=== PATIENT | female | born 1960 | race Two or more races ===

== ENCOUNTER 2024-07-06 09:54 | Outpatient (AMB) | payer OTHER, SELFPAY ==
--- NOTE | 2024-07-06 10:34 | MHC.OFFVIS ---
Vital Signs 07/06/24 10:37 Height 5 ft 0.79 in Weight 213 lb 13.574 oz BMI 40.7 BP 142/86 H Blood Pressure Location Rt brachial Position Sitting Pulse 79 Pulse Source Pulse Oximeter Pulse Oximetry (%) 98 Oxygen Delivery Method Room Air Intake Visit Reasons: sleep apnea Allergies hydromorphone [From Dilaudid] Allergy (Intermediate, Verified 07/06/24 10:43) Swelling Sulfa (Sulfonamide Antibiotics) Allergy (Verified 07/06/24 10:43) Swelling HPI Comments Details: The patient is here for pulmonary evaluation. The patient is a 63 year woman with known history of sleep apnea. Apparently she was diagnosed back in 2012 with sleep study demonstrating moderate sleep apnea. Ever since the patient has been on CPAP therapy. The therapy has been very affecting beneficial for her. She does use a nasal mask, N20 large. Initially she did get supplies through [facility] [employer] and then switched over to [employer] once it was brought out. Subsequently after that switched over to [employer]. [facility] have been providing her with a new APAP AirSense 11 in a mask N20 large getting it readily and the patient again used it every night for more than 4 hours a night. Again, very happy with her CPAP therapy. Unfortunately she stopped getting supplies about a year ago. She was not clear why. She will call the sleep Center in also called the [employer] company but she could not get a clear answer. Most likely was a language barrier which she did not understand that [facility] with no longer providing business with [employer]. Therefore she continue to use his supplies as she continued to clean them thoroughly to make sure that she was disinfecting them. Otherwise the patient is doing well. She does complains of dyspepsia at times. She did have imaging study at [facility] a CT scan of the abdomen that I just looked at the lung cuts without any evidence of any underlying lung disease although she does have a small hiatal hernia. We did talk about the importance of reflux diet and sleeping elevated. The patient still has [employer] for insurance will go ahead and send a script for her supplies to be delivered through [employer]. [facility] Medical History (Updated 07/06/24 @ 19:59 by Flip Sol MD) Hiatal hernia ARMANDO on CPAP Social History (Updated 07/06/24 @ 10:42 by Stacey Light CMA) Alcohol intake: never Patient Tobacco Use Status: Never used Tobacco Review of Systems Const Denies daytime sleepiness Eyes Reports no additional complaints ENT Reports no additional complaints Card Denies chest pain Resp Reports cough and Denies wheezing GI Reports dyspepsia Musc Reports no additional complaints Skin/Breast Denies rash Neuro Reports no additional complaints Jimmie/Lymph Reports no additional complaints Aller/Immun Denies wheezing Physical Exam Vital Signs: Last Vital Signs Pulse 79 07/06/24 10:37 BP 142/86 H 07/06/24 10:37 Pulse Ox 98 07/06/24 10:37 Oxygen Delivery Method Room Air 07/06/24 10:37 BMI result Body Mass Index 40.7 Const General: comfortable Orientation/consciousness: patient oriented x3 HEENT Head: Yes normocephalic Neck Neck: Yes supple Chest Chest palpation & inspection: normal inspection of the chest Resp Effort & Inspection: normal respiratory effort Auscultation: clear to auscultation bilaterally Cardio Heart sounds: S1 normal heart sound present and S2 normal heart sound present GI Palpation (GI): Soft to palpation Skin General skin exam: no rashes or lesions noted Neuro General: patient oriented x3 Extrem General: Yes no clubbing, cyanosis or edema Assessment & Plan Assessment & Plan (1) ARMANDO on CPAP: Code(s): G47.33 - Obstructive sleep apnea (adult) (pediatric) Category: Medical (2) Hiatal hernia: Code(s): K44.9 - Diaphragmatic hernia without obstruction or gangrene Category: Medical Plan Continue APAP, will request access to adjust via [employer] Needs supplies, N20 Large sent script to [employer] should sleep with HOB elebated reflux diet F/U 6 months Coding Level of Care Code New Pt Level 4 (42618) Diagnoses ARMANDO on CPAP G47.33 Hiatal hernia K44.9 Time Spent (min) 35
[2024-07-06 10:37] VITALS: BP 142/86; PULSE 79; O2SAT 98; BMI 40.7
--- OUTSIDE RECORDS SUMMARY | 2024-07-06 11:24 | XMS_ITS | Clinical Summary ---
Author Organization [facility] ity Address [id number] [place] [id number] Care Team Providers Care Specialty Department Supervisor Name Role Phone Unavailable Primary Care Provider Unavailabl e Social History Tobacco Use Types Packs/Day Years Used Date Smoking Tobacco: Never Assessed Comments Unknown Sex and Gender Information Value Date Recorded Sex Assigned at Not on file Legal Sex Female 12:52 AM EST Gender Identity Not on file Sexual Orientation Not on file Plan of Treatment Health Maintenance Due Date Last Done Comments Breast Cancer Screening 1960 DTaP,Tdap,and Td Vaccines (1 - Tdap) 07/21/1978 Cervical Cancer Screening: P ap Smear 07/21/1980 Pneumococcal Vaccine: 50+ Ye ars (1 of 1 - PCV) 07/21/2009 Zoster Vaccines (1 of 2) 07/21/2009 COVID-19 Vaccine ( - 2023-2 5 season) 2023 Influenza Vaccine (#1) 2023 RSV Immunization Adult Patie nts (1 - 1-dose 75+ series) 07/21/2034 HIB Vaccines Aged Out No longer eligi ble based on patient's age to complete this topic HPV Vaccines Aged Out No longer eligi ble based on patient's age to complete this topic Hepatitis A Vaccines Aged Out No long er eligible based on patient's age to complete this topic Hepatitis B Vaccines Aged Out No long er eligible based on patient's age to complete this topic IPV Vaccines Aged Out No longer eligi ble based on patient's age to complete this topic MMR Vaccines Aged Out No longer eligi ble based on patient's age to complete this topic Meningococcal ACWY Vaccine Aged Out N o longer eligible based on patient's age to complete this topic Meningococcal B Vaccine Aged Out No l onger eligible based on patient's age to complete this topic Pneumococcal Vaccine: Pediat rics (0 to 5 Years) and At-Risk Patients (6 to 64 Years) Aged Out No longer eligible b ased on patient's age to complete this topic RSV Immunization Patients Un jens 20 months Aged Out No longer eligible b ased on patient's age to complete this topic Varicella Vaccines Aged Out No longer eligible based on patient's age to complete this topic
== END 2024-07-06 11:05 | disposition home or self-care (01) ==
LOC: HO.HPS 09:54
PROVIDERS: PCP Physician Assistant Medical; Visit Provider Hospitalist
DX: G47.33 Obstructive sleep apnea (adult) (pediatric) (principal); K44.9 Diaphragmatic hernia without obstruction or gangrene
CPT/HCPCS: 99204

== ENCOUNTER → 2024-07-06 09:54 | Outpatient (BNVA) | payer OTHER, SELFPAY | PROVIDERS: PCP Physician Assistant Medical; Visit Provider Hospitalist | DX: G47.33 Obstructive sleep apnea (adult) (pediatric) (principal); K44.9 Diaphragmatic hernia without obstruction or gangrene | CPT/HCPCS: 99202 ==

== ENCOUNTER 2024-12-31 10:17 | Outpatient (AMB) | payer MEDICARE, MEDICAID, SELFPAY ==
[2024-12-31 10:19] VITALS: BP 150/82; PULSE 76; O2SAT 96; BMI 40.0
--- NOTE | 2024-12-31 10:19 | MHC.OFFVIS ---
Vital Signs 12/31/24 10:19 Height 5 ft Weight 205 lb 0.478 oz BMI 40.0 BP 150/82 H Blood Pressure Location Rt brachial Position Sitting Pulse 76 Pulse Source Pulse Oximeter Pulse Oximetry (%) 96 Oxygen Delivery Method Room Air Intake Visit Reasons: sleep apnea Allergies hydromorphone (From Dilaudid) Allergy (Intermediate, Verified 12/31/24 10:21) Swelling Sulfa (Sulfonamide Antibiotics) Allergy (Verified 12/31/24 10:21) Swelling HPI Comments Details: The patient is a 64 year woman with known history of sleep apnea. Apparently she was diagnosed back in 2012 with sleep study demonstrating moderate sleep apnea. Ever since the patient has been on CPAP therapy. The therapy has been very affecting beneficial for her. She does use a nasal mask, N20 large. Initially she did get supplies through [facility] [employer] and then switched over to [employer] once it was brought out. Subsequently after that switched over to [employer]. [facility] have been providing her with a new APAP AirSense 11 in a mask N20 large getting it readily and the patient again used it every night for more than 4 hours a night. Again, very happy with her CPAP therapy. Unfortunately she stopped getting supplies about a year ago. She was not clear why. She will call the sleep Center in also called the [employer] company but she could not get a clear answer. Most likely was a language barrier which she did not understand that [facility] with no longer providing business with [employer]. Therefore she continue to use his supplies as she continued to clean them thoroughly to make sure that she was disinfecting them. Otherwise the patient is doing well. She does complains of dyspepsia at times. She did have imaging study at [facility] a CT scan of the abdomen that I just looked at the lung cuts without any evidence of any underlying lung disease although she does have a small hiatal hernia. We did talk about the importance of reflux diet and sleeping elevated. The patient still has [employer] for insurance will go ahead and send a script for her supplies to be delivered through [employer]. 12/31/2024 the patient is here for pulmonary follow-up visit. The patient overall is doing well. She continues uses CPAP every night. CPAP therapy has been affecting beneficial. She does use it for more than 4 hours a night. Sometimes she feels like she is not getting enough pressure from the machine. She is not sure if the machine needs to be changed. She is using a nasal mask. Seems to be working well along with a chinstrap. Will go ahead and request a download from the machine at this time from her [employer] company. Once we have access we can do that online. In the meantime she is not getting her supplies readily. We did send a script over in the beginning of the month will send another 1 now. To make sure that she gets her supplies readily available specially since she is so adherent to the therapy. She continues to have some reflux disease. Mild in severity. She does have a positional bed that helps with the symptoms. She has a small hiatal hernia noted on imaging studies. She is on have to take any medications for it. The patient will return in 6 months and she will bring her CPAP with her so we can assess the machine and adjusted accordingly. If she has any issues prior to this she can always call for further recommendations. [facility] Medical History (Updated 07/06/24 @ 19:59 by Flip Sol MD) Hiatal hernia ARMANDO on CPAP Social History Alcohol intake: never Patient Tobacco Use Status: Never used Tobacco Review of Systems Const Denies daytime sleepiness Eyes Reports no additional complaints ENT Reports no additional complaints Card Denies chest pain Resp Reports cough and Denies wheezing GI Reports dyspepsia Musc Reports no additional complaints Skin/Breast Denies rash Neuro Reports no additional complaints Jimmie/Lymph Reports no additional complaints Aller/Immun Denies wheezing Physical Exam Vital Signs: Last Vital Signs Pulse 76 12/31/24 10:19 BP 150/82 H 12/31/24 10:19 Pulse Ox 96 12/31/24 10:19 Oxygen Delivery Method Room Air 12/31/24 10:19 BMI result Body Mass Index 40.0 Const General: comfortable Orientation/consciousness: patient oriented x3 HEENT Head: Yes normocephalic Neck Neck: Yes supple Chest Chest palpation & inspection: normal inspection of the chest Resp Effort & Inspection: normal respiratory effort Auscultation: clear to auscultation bilaterally Cardio Heart sounds: S1 normal heart sound present and S2 normal heart sound present GI Palpation (GI): Soft to palpation Skin General skin exam: no rashes or lesions noted Neuro General: patient oriented x3 Extrem General: Yes no clubbing, cyanosis or edema Assessment & Plan Assessment & Plan (1) ARMANDO on CPAP: Code(s): G47.33 - Obstructive sleep apnea (adult) (pediatric) Category: Medical (2) Hiatal hernia: Code(s): K44.9 - Diaphragmatic hernia without obstruction or gangrene Category: Medical Plan Continue APAP, will request access to adjust via [employer] Needs supplies, N20 Large sent script should sleep with HOB elebated reflux diet F/U 6 months Coding Level of Care Code Est Pt Level 4 (76195) Complex EM visit Add On G2211 Diagnoses ARMANDO on CPAP G47.33 Hiatal hernia K44.9 Time Spent (min) 16
--- OUTSIDE RECORDS SUMMARY | 2024-12-31 11:08 | XMS_ITS | Clinical Summary ---
Author Organization [facility] ity Address [id number] [place] [id number] Care Team Providers Care Athletic Coordinator Name Role Phone Unavailable Primary Care Provider [...] 07/21/2009 Zoster Vaccines (1 of 2) 07/21/2009 Depression Screening 03/31/2024 COVID-19 Vaccine (1 - 2023-2 5 season) 2024 Influenza Vaccine (#1) 2024 RSV Immunization Adult Patie nts (1 - [...]
== END 2024-12-31 10:50 | disposition home or self-care (01) ==
PROVIDERS: PCP Physician Assistant Medical; Visit Provider Hospitalist
DX: G47.33 Obstructive sleep apnea (adult) (pediatric) (principal); K44.9 Diaphragmatic hernia without obstruction or gangrene
CPT/HCPCS: 99214; G2211

== ENCOUNTER → 2024-12-31 10:17 | Outpatient (BNVA) | payer MEDICARE, SELFPAY | PROVIDERS: PCP Physician Assistant Medical; Visit Provider Hospitalist | DX: G47.33 Obstructive sleep apnea (adult) (pediatric) (principal); K44.9 Diaphragmatic hernia without obstruction or gangrene | CPT/HCPCS: 99212 ==